=== PATIENT | male | born 1975 | race Caucasian/White ===

== ENCOUNTER 2021-02-27 03:06 | Emergency (ER) | payer BC ==
[~2021-02-27] VITALS: Ht 175.3 cm; Wt 113.6 kg
[2021-02-27 03:24] VITALS: BP 137/75
[2021-02-27] MEDS ORDERED: OXYMETAZOLINE 0.05% NASAL SPRAY 30ML BOTTLE. NS ONE (03:45)
--- NOTE | 2021-02-27 03:46 | ED.ADGEN ---
Past Medical History Additional Past Medical Histor: EAR INFECTIONS Past Surgical History: Tonsillectomy Additional Past Surgical Histo: BONE SPURS REMOVED FROM SHOULDER, KNEE SCOPE, TUBES IN EARS General Adult EDM: Chief Complaint: EARACHE/EAR PAIN HPI: HPI: Patient is a 45 year old male coming in for bilateral ear pain and pressure. States he was recently seen by his primary care and diagnosed with ear infection and just finished a course of Augmentin 4 days ago, states his symptoms never got any better. Has had appointment with his ENT doctor in 2 days in regards to his ear infections and to see about sinus surgery for his chronic congestion. Denies any fevers, tinnitus, vertigo or other complaints. Not had any drainage from his eyes been taking ibuprofen for pain Review of Systems: Review of Systems: All other systems within normal limits except for as noted in the HPI Physical Exam: PE: Constitutional: Well developed, well nourished, no acute distress, non-toxic appearance. [] HENT: Normocephalic, atraumatic, bilateral external ears normal, nose normal. Bilateral TMs retracted, no erythema or drainage [] Eyes: PERRLA, conjunctiva normal, no discharge. [] Neck: No rigidity, supple, no stridor. [] Cardiovascular: Regular rate and rhythm, brisk cap refill [] Lungs & Thorax: Non labored symmetric respirations, no tachypnea or respiratory distress [] Abdomen: Soft, nondistended. Skin: Warm, dry, no erythema, no rash. [] Back: Unremarkable Extremities: No deformities, range of motion grossly intact, no lower extremity edema [] Neurologic: Alert and oriented X 3, no focal deficits noted. [] Psychologic: Affect normal, judgement normal, mood normal. [] Current Patient Data: Vital Signs: Vital Signs Date Time Temp Pulse Resp B/P (MAP) Pulse Ox O2 Delivery O2 Flow Rate FiO2 02/27/21 03:24 98.5 69 20 137/75 (95) 98 Room Air 98.5 EKG: EKG: [] Heart Score: C/O Chest Pain: No Risk Factors: Risk Factors: DM, Current or recent (<one month) smoker, HTN, HLP, family history of CAD, obesity. Risk Scores: Score 0 - 3: 2.5% MACE over next 6 weeks - Discharge Home Score 4 - 6: 20.3% MACE over next 6 weeks - Admit for Clinical Observation Score 7 - 10: 72.7% MACE over next 6 weeks - Early Invasive Strategies Radiology/Procedures: Radiology/Procedures: [] Course & Med Decision Making: Course & Med Decision Making Pertinent Labs and Imaging studies reviewed. (See chart for details) [] Dragon Disclaimer: Dragon Disclaimer: This electronic medical record was generated, in whole or in part, using a voice recognition dictation system. Departure Departure Impression: Primary Impression: Ear pain Disposition: HOME / SELF CARE / HOMELESS Condition: STABLE Referrals: UNKNOWN PCP NAME (PCP) Patient Instructions: Sinusitis Additional Instructions: Use the Afrin nasal spray: 2 sprays in each nostril 2 times a day until you follow-up with her ENT appointment in 2 days. Use [id number] decongestants such as Mucinex and increase water intake. DONATO ARDON MD Feb 27, 2021 03:46
== END 2021-02-27 04:15 | disposition home or self-care (01) ==
LOC: ER 03:06
DX: H92.03 Otalgia, bilateral (principal)
CPT/HCPCS: 99282

== ENCOUNTER 2021-04-04 22:17 | Emergency (ER) | payer BC ==
[~2021-04-04] VITALS: Ht 175.3 cm; Wt 164.0 kg
--- NOTE | 2021-04-05 00:50 | PHYS DOC ---
Past Medical History Additional Past Medical Histor: EAR INFECTIONS Past Surgical History: Tonsillectomy Additional Past Surgical Histo: BONE SPURS REMOVED FROM SHOULDER, KNEE SCOPE, TUBES IN EARS Smoking Status: Former Smoker Alcohol Use: None General Adult EDM: Chief Complaint: FLU SYMPTOM HPI: HPI: Patient is a 46 year old male who is here with 5 or 6-day history of dry cough, shortness of breath, and fatigue. No reported fever. No reported sputum production or hemoptysis. No reported lower extremity pain or swelling. He does report some exertional dyspnea. No exertional chest pain. He reports only mild chest discomfort with coughing only, no chest pressure. No dizziness, di aphoresis, abdominal pain, nausea, vomiting, diarrhea. His 14-year-old daughter tested positive for COVID last week. They live together. She is not vaccinated against COVID-19. He has been vaccinated, but he did not receive a booster, his vaccinations occurred in early 2020. He has not been vaccinated against influenza. He denies recent surgery, hospitalization. 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 No prior history of PE. He does report that he is a former smoker, he quit smoking 2 years ago. No known history of lung disease. Review of Systems: Review of Systems: Constitutional: Denies fever or chills. [] HENT: Denies nasal congestion or sore throat. [] Respiratory: Reports dry cough and dyspnea. Denies hemoptysis Cardiovascular: Denies chest pain or edema. [] GI: Denies abdominal pain, nausea, vomiting, or diarrhea Musculoskeletal: Denies back pain or joint pain. [] Integument: Denies rash. [] Neurologic: Denies headache, focal weakness or sensory changes. [] Psychiatric: Denies depression or anxiety. [] Heart Score: C/O Chest Pain: No Risk Factors: Risk Factors: DM, Current or recent (<one month) smoker, HTN, HLP, family history of CAD, obesity. Risk Scores: Score 0 - 3: 2.5% MACE over next 6 weeks - Discharge Home Score 4 - 6: 20.3% MACE over next 6 weeks - Admit for Clinical Observation Score 7 - 10: 72.7% MACE over next 6 weeks - Early Invasive Strategies Allergies: Allergies: Allergies Coded Allergies Type Severity Reaction Last Updated Verified No Known Drug Allergies 02/27/21 No Physical Exam: PE: Constitutional: Well developed, well nourished, no acute distress, non-toxic appearance. [] HENT: Normocephalic, atraumatic Eyes: Conjunctiva normal, no discharge. [] Neck: Normal range of motion, no tenderness, supple, no stridor. Trachea is midline. No JVD. Cardiovascular:Heart rate regular rhythm, +2 radial and +2 posterior tibial pulses bilaterally, warm and well-perfused Lungs & Thorax: Bilateral breath sounds clear to auscultation, no rales, rhonchi or wheezes. No stridor. Equal chest rise. Speaks in full and clear sentences. No evidence of distress. Coughing is noted with deep inspiration Abdomen: Abdomen is soft, obese, nondistended, nontender to palpation Skin: Warm, dry, no erythema, no rash. [] Back: No tenderness, no CVA tenderness. [] Extremities: No tenderness, no cyanosis, no clubbing, ROM intact, no edema. No calf tenderness Neurologic: Alert and oriented X 3, normal motor function, normal sensory function, no focal deficits noted. [] Psychologic: Affect normal, judgement normal, mood normal. [] EKG: EKG: E[place] interpreted at 0147 Rhythm is sinus Rate is 73 bpm No STEMI Radiology/Procedures: Radiology/Procedures: IMAGING REPORT Signed PATIENT: LIZ ANDRADE LACCOUNT: [id number] : 1975 LOCATION: ER AGE: 46 SEX: M EXAM STATUS: REG ER ORD. PHYSICIAN: DAYANA GARCIA DO REASON: cough, dyspnea PROCEDURE: PORTABLE CHEST 1V Single view chest dated 04/05/2021 1:26 AM: COMPARISON: None Clinical Indication: Dyspnea. Findings: Single upright portable exam of the chest was performed. Heart size and mediastinal contours are within normal limits. Lungs are clear. No consolidation or pleural effusion. No pneumothorax. Elevation of right hemidiaphragm. IMPRESSION: No acute radiographic abnormality. Electronically signed by: Vinh Ruelas MD (04/05/2021 1:26 AM) [facility] [place]CTATED and SIGNED BY: VINH RUELAS MD DATE: 04/05/21 [id number] Course & Med Decision Making: Course & Med Decision Making Pertinent Labs and Imaging studies reviewed. (See chart for details) I discussed the findings, differential diagnosis and plan of care with the patient. He is emergency room work-up is unremarkable except for the findings of a positive COVID antigen test. He manifest no evidence of acute distress or hypoxia. D-dimer is negative. Troponin is negative. No acute ischemia on EKG. Chest x-ray is unremarkable. There is no current indication for further invasive exams, imaging or admission at this time based on current clinical presentation. I discussed home care instructions, he must go home, self isolate. He must notify all close contacts within the last 14 days, in order to have them quarantine. Strict return precautions are given. He verbalizes understanding. Bari Disclaimer: Bari Disclaimer: This electronic medical record was generated, in whole or in part, using a voice recognition dictation system. Departure Departure Impression: Primary Impression: COVID-19 Disposition: HOME / SELF CARE / HOMELESS Condition: STABLE Referrals: UNKNOWN PCP NAME (PCP) Additional Instructions: You have been tested for or diagnosed with COVID-19. It is an infection caused by a new type of coronavirus. COVID-19 will cause cold-like or mild flu symptoms in most. It can cause more severe symptoms like problems breathing in some. There is no treatment for COVID-19. The body will clear the infection over time. Self-care will help to ease discomfort. Steps to Take: Self-Care Rest as needed. Healthy habits may help you feel better. Steps include: Choose healthy foods including fruits and vegetables. Drink water throughout the day. Get plenty of sleep each night. If you smoke, try to quit. It may ease breathing. Avoid alcohol. Keep Others Healthy The virus can spread to others. Droplets are released every time you sneeze or cough. The droplets can get into the mouth, nose, or eyes of people near you and lead to infection. To lower the chances of spreading COVID-19 to others: Stay at home until your doctor has said it is safe to leave. If you tested positive this will mean staying isolated until both of the following are true: At least 7 days have passed since the start of illness. You are free of fever for at least 72 hours without the use of medicine. During this time: - Avoid public areas, events, or transportation. Do not return to work or school until your doctor has said it is safe to do so. - Call ahead if you need to go to a medical center. Let them know you may have COVID-19. It will help them guide you where to go. They may also ask you to wear a facemask when you come to the office. - If you call for emergency medical services, let them know you may have COVID- 19. While at home: - Try to avoid close contact with others. Stay about 6 feet away. - If possible, spend most of your time in a separate room from others. - Use a face mask if you will be in close contact with others such as sharing a room or vehicle. - Have someone wipe down common surfaces in the home. Use household resilient tile installer every day on areas like doorknobs, counters, or sinks. - Cough or sneeze into a tissue. Throw the tissue away right after use. If a tissue is not available, cough or sneeze into your elbow. - Wash your hands often. Wash them after sneezing or coughing. Use soap and water and wash for at least 20 seconds. Alcohol based hand septic tank cleaner can be used if soap and water is not available. - Do not prepare food for others. Avoid sharing personal items like forks, spoons, or toothbrushes. - Avoid close contact with pets while you are sick. There is no evidence of the virus passing to pets. This is a safety step until more is known about this virus. Isolation can be frustrating. Social interaction can help. Keep in touch with friends and family through phone and tech options. You can still interact with others in your home, just keep a safe distance of about 6 feet. Follow-up: Your doctors office will check in with you to see if there are any changes in your health. You may be asked to keep track of symptoms to share with them. They will also let you know when you are clear to be in public again. Problems to Look Out For: Contact your doctor if your recovery is not going as you expect. Get emergency care if you have problems such as: - Trouble breathing - Nonstop chest pain or pressure - Changes in awareness, confusion, or problems waking - Lips or face have bluish color - Worsening of symptoms If you think you have an emergency, call for emergency medical services right away. As taken from [facility] Albuterol Sulfate (VENTOLIN HFA INHALER) 18 Gm Hfa.aer.ad 2 PUFF INH Q4HRS for FOR ASTHMA, #1 EACH 1 Refill Prov: DAYANA GARCIA DO 04/05/21 Benzonatate (BENZONATATE) 200 Mg Capsule 1 CAP PO PRN TID PRN for cough, #20 CAP 0 Refills Prov: DAYANA GARCIA DO 04/05/21 DAYANA GARCIA DO Apr 05, 2021 00:50
--- NOTE | 2021-04-05 01:28 | RAD ---
Single view chest dated 04/05/2021 1:26 AM: COMPARISON: None Clinical Indication: Dyspnea. Findings: Single upright portable exam of the chest was performed. Heart size and mediastinal contours are with in normal limits. Lungs are clear. No consolidation or pleural effusion. No pneumothorax. Elevation o f right hemidiaphragm. IMPRESSION: No acute radiographic abnormality. Electronically signed by: Vinh Ruelas MD (04/05/2021 1:26 AM) CYNDIE
[2021-04-05 01:38] LABS: BASO # 0.1 x10^3/uL (0.0-0.2); BASO % 1 % (0-3); EOS # 0.2 x10^3/uL (0.0-0.7); EOS % 2 % (0-3); HEMATOCRIT 40.3 % (39.0-53.0); HEMOGLOBIN 13.6 g/dL (13.0-17.5); LYMPH # 3.2 x10^3/uL (1.0-4.8); LYMPH % 34 % (24-48); MEAN CORPUSCULAR HEMOGLOBIN 30 pg (25-35); MEAN CORPUSCULAR HGB CONC 34 g/dL (31-37); MEAN CORPUSCULAR VOLUME 90 fL (79-100); MONO % 10 % (0-9); NEUT # 5.1 x10^3/uL (1.8-7.7); NEUT % 54 % (31-73); PLATELET COUNT 221 x10^3/uL (140-400); RED BLOOD COUNT 4.49 x10^6/uL (4.30-5.70); RED CELL DISTRIBUTION WIDTH 13.7 % (11.5-14.5); WHITE BLOOD COUNT 9.5 x10^3/uL (4.0-11.0)
[2021-04-05 01:44] LABS: CREATININE 1.1 mg/dL (0.7-1.3); GFR 72.7; POTASSIUM 3.4 mmol/L (3.5-5.1)
[2021-04-05 01:50] LABS: ALBUMIN 3.1 g/dL (3.4-5.0); ALBUMIN/GLOBULIN RATIO 0.9 (1.0-1.7); TOTAL BILIRUBIN 0.4 mg/dL (0.2-1.0); TOTAL PROTEIN 6.6 g/dL (6.4-8.2)
[2021-04-05 01:56] LABS: INFLUENZA A PATIENT NEGATIVE (NEGATIVE); INFLUENZA B PATIENT NEGATIVE (NEGATIVE)
[2021-04-05 02:00] VITALS: BP 127/63
[2021-04-05] MEDS ORDERED: BENZ200C47 PO (02:10)
[2021-04-05] MEDS ORDERED: VENTOLIN HFA18 GM INH (02:10)
[2021-04-05 02:12] LABS: BILIRUBIN,URINE NEGATIVE (NEG); CLARITY,URINE CLEAR; COLOR,URINE YELLOW; NITRITE,URINE NEGATIVE (NEG); PH,URINE 5.5 (<5.0-8.0); PROTEIN,URINE NEGATIVE (NEG-TRACE)
[2021-04-05 02:33] LABS: BACTERIA,URINE 0 /HPF (0-FEW); RBC,URINE 0 /HPF (0-2)
--- NOTE | 2021-04-05 07:42 | EKG ---
[facility] [address] [place] [address] Test Date: 2021-04-05 Test Time: 01:42:38 Pat Name: LIZ ANDRADE Department: Room: Gender: M Knowledge Engineer: : 1975 Requested By: DAYANA GARCIA Order Number: [id number] Reading MD: Jimmy Martínez MD Measurements Intervals [place] Rate: 73 P: 43 MA: 148 QRS: 5 QRSD: 90 T: 20 QT: 360 QTc: 400 Interpretive Statements SINUS RHYTHM Electronically Signed On 04-05-2021 20:39:46 FRINGING MACHINE OPERATOR by Jimmy Martínez MD
== END 2021-04-05 02:20 | disposition home or self-care (01) ==
LOC: ER 22:17
DX: U07.1 COVID-19 (principal); Z87.891 Personal history of nicotine dependence
CPT/HCPCS: 36415; 71045; 80053; 81001; 83880; 84484; 85025; 85379; 87428; 93005; 99285-25

== ENCOUNTER → 2021-07-20 | Emergency (ER) | payer BC ==
[~2021-07-20] VITALS: Ht 175.3 cm; Wt 122.7 kg
[~2021-07-20] MED LIST: BENZ200C47 PO; CEPH500T PO; IV NORMAL SALINE 1000ML BAG 1,000 ML IV ONE; KETOROLAC 30 MG/ML VIAL. IVP ONE; MORPHINE SULFATE 4 MG/ML INJ. IVP ONE; POTASSIUM CHLORIDE 20 MEQ TABLET.ER. PO ONE; VENTOLIN HFA18 GM INH; cefTRIAXone IV Push 1 GM VIAL. IVP ONE
[2021-07-20 21:42] LABS: BASO # 0.1 x10^3/uL (0.0-0.2); BASO % 1 % (0-3); EOS # 0.2 x10^3/uL (0.0-0.7); EOS % 2 % (0-3); HEMATOCRIT 37.3 % (39.0-53.0); HEMOGLOBIN 12.8 g/dL (13.0-17.5); LYMPH # 3.3 x10^3/uL (1.0-4.8); LYMPH % 25 % (24-48); MEAN CORPUSCULAR HEMOGLOBIN 31 pg (25-35); MEAN CORPUSCULAR HGB CONC 34 g/dL (31-37); MEAN CORPUSCULAR VOLUME 89 fL (79-100); MONO # 0.8 x10^3/uL (0.0-1.1); MONO % 6 % (0-9); NEUT # 8.8 x10^3/uL (1.8-7.7); NEUT % 67 % (31-73); PLATELET COUNT 232 x10^3/uL (140-400); RED BLOOD COUNT 4.21 x10^6/uL (4.30-5.70); RED CELL DISTRIBUTION WIDTH 13.5 % (11.5-14.5); WHITE BLOOD COUNT 13.2 x10^3/uL (4.0-11.0)
[2021-07-20 21:50] LABS: BACTERIA,URINE FEW /HPF (0-FEW); WBC,URINE TNTC /HPF (0-4)
[2021-07-20 22:00] LABS: CALCIUM 7.7 mg/dL (8.5-10.1); GFR 81.2; POTASSIUM 3.1 mmol/L (3.5-5.1)
[2021-07-20 22:06] LABS: ALBUMIN 3.2 g/dL (3.4-5.0); TOTAL BILIRUBIN 0.6 mg/dL (0.2-1.0); TOTAL PROTEIN 6.5 g/dL (6.4-8.2)
--- NOTE | 2021-07-20 22:15 | RAD ---
Exam: CT of abdomen and pelvis without contrast INDICATION: Renal colic study, right flank pain TECHNIQUE: Sequential axial images through the abdomen and pelvis obtained without IV contrast. Sagit bassem and coronal reformatted images were reconstructed from the axial data and reviewed. Exposure: One or more of the following in the visualized dose reduction techniques were utilized for this examination: 1. Automated exposure control 2. Adjustment of the MA and/or KV according to patient size 3. Use of iterative of reconstructive technique Comparisons: None FINDINGS: Heart size is normal. No pericardial effusion. Visualized lung bases are clear. No pleural effusion. Evaluation of solid organs limited to noncontrast technique. Liver has diffuse hepatic steatosis. Spleen, pancreas, gallbladder and adrenals are unremarkable. No perinephric inflammation or hydronephrosis. No renal or ureteral calculi are identified. Bladder is partially distended and not well evaluated. Prostate is not enlarged. Moderate amount of stool noted in the colon. Appendix is normal. Small bowel is unremarkable. No free intra-abdominal air fluid. No obstruction. Abdominal aorta has normal course and caliber. No enlarged intra-abdominal lymph nodes are identified. No suspicious osseous lesions or acute fractures. IMPRESSION: 1. No renal or ureteral calculi. No evidence for obstructive uropathy. 2. Diffuse hepatic steatosis. Electronically signed by: Jasper Worrell MD (07/20/2021 10:12 PM) [facility]
--- NOTE | 2021-07-20 22:18 | PHYS DOC ---
Past Medical History Additional Past Medical Histor: EAR INFECTIONS Past Surgical History: No Surgical History Additional Past Surgical Histo: BONE SPURS REMOVED FROM SHOULDER, KNEE SCOPE, TUBES IN EARS Smoking Status: Never Smoker Alcohol Use: None General Adult EDM: Chief Complaint: ABDOMINAL PAIN HPI: HPI: Patient is a 46-year-old patient presents to the emergency department complaining of right-sided mid to low abdomen pain with painful burning urination that started yesterday evening after she got off work. Patient states he has not seen any blood in his urine, does complain of increased urinary frequency, painful difficulty urination with burning. Patient denies nausea vomiting diarrhea or constipation. Patient denies chest pains, denies recent fever or chills. Patient denies chest or nasal congestion. Patient denies rashes or lesions to his penis or genitals. Patient denies penile discharge, patient denies STI concerns. Denies other physical complaints or physical patricia rns. Review of Systems: Review of Systems: 14 body systems of review of systems have been reviewed. See HPI for pertinent positives and negative responses, otherwise all other systems are negative, nonpertinent or noncontributory. Constitutional: Negative except as outlined in HPI above. Skin: Negative except as outlined in HPI above. Eyes: Negative except as outlined in HPI above. HENT: Negative except as outlined in HPI above. Respiratory: Negative except as outlined in HPI above. Cardiovascular: Negative except as outlined in HPI above. GI: Negative except as outlined in HPI above. : Negative except as outlined in HPI above. Musculoskeletal: Negative except as outlined in HPI above. Integument: Negative except as outlined in HPI above. Neurologic: Negative except as outlined in HPI above. Endocrine: Negative except as outlined in HPI above. Lymphatic: Negative except as outlined in HPI above. Psychiatric: Negative except as outlined in HPI above. Heart Score: C/O Chest Pain: No Risk Factors: Risk Factors: DM, Current or recent (<one month) smoker, HTN, HLP, family his tory of CAD, obesity. Risk Scores: Score 0 - 3: 2.5% MACE over next 6 weeks - Discharge Home Score 4 - 6: 20.3% MACE over next 6 weeks - Admit for Clinical Observation Score 7 - 10: 72.7% MACE over next 6 weeks - Early Invasive Strategies Current Medications: Current Medications Medications (Trade) Dose Ordered Sig/Jesus Start Time Stop Time Status Last Admin Dose Admin Ketorolac Tromethamine (Toradol 30mg Vial) 30 mg 1X ONCE 07/20/21 22:00 07/20/21 22:01 DC 07/20/21 21:34 30 MG Potassium Chloride (Klor-Con) 40 meq 1X ONCE 07/20/21 22:15 07/20/21 22:16 UNV Sodium Chloride 1,000 ml @ 1,000 mls/hr 1X ONCE 07/20/21 22:00 07/20/21 22:59 07/20/21 21:34 1,000 MLS/HR Allergies: Allergies: Allergies Coded Allergies Type Severity Reaction Last Updated Verified No Known Drug Allergies 02/27/21 No Physical Exam: PE: Constitutional: Well developed, well nourished, no acute distress, non-toxic appearance. 46-year-old male in no apparent distress. HENT: Normocephalic, atraumatic. Eyes: Conjunctiva normal, no discharge. Neck: Normal range of motion, no stridor. Cardiovascular: No cyanosis appreciated, distal cap refill less than 2 seconds. Lungs & Thorax: Patient is in no respiratory distress, no audible adventitious lung sounds appreciated. Abdomen: Abdomen is tender just inferior to umbilicus, there is no definitive McBurney's point tenderness, negative psoas sign, negative rebound tenderness. No abnormal discoloration of the abdomen. Abdomen is soft. Skin: Warm, dry, no erythema, no rash. Back: No deformities present, there is no left-sided CVA TTP, there is positive right-sided CVA TTP. Extremities: No tenderness, no cyanosis, no clubbing, ROM intact, no edema. Neurologic: Alert and oriented X 3, normal motor function, normal sensory function, no focal deficits noted. Psychologic: Affect normal, judgement normal, mood normal. Current Patient Data: Labs: Laboratory Tests Test 07/20/21 21:35 White Blood Count 13.2 x10^3/uL (4.0-11.0) H Red Blood Count 4.21 x10^6/uL (4.30-5.70) L Hemoglobin 12.8 g/dL (13.0-17.5) L Hematocrit 37.3 % (39.0-53.0) L Mean Corpuscular Volume 89 fL (79-100) Mean Corpuscular Hemoglobin 31 pg (25-35) Mean Corpuscular Hemoglobin Concent 34 g/dL (31-37) Red Cell Distribution Width 13.5 % (11.5-14.5) Platelet Count 232 x10^3/uL (140-400) Neutrophils (%) (Auto) 67 % (31-73) Lymphocytes (%) (Auto) 25 % (24-48) Monocytes (%) (Auto) 6 % (0-9) Eosinophils (%) (Auto) 2 % (0-3) Basophils (%) (Auto) 1 % (0-3) Neutrophils # (Auto) 8.8 x10^3/uL (1.8-7.7) H Lymphocytes # (Auto) 3.3 x10^3/uL (1.0-4.8) Monocytes # (Auto) 0.8 x10^3/uL (0.0-1.1) Eosinophils # (Auto) 0.2 x10^3/uL (0.0-0.7) Basophils # (Auto) 0.1 x10^3/uL (0.0-0.2) Urine Collection Type Unknown Urine Color (Auto) Light orange Urine Turbidity Hazy Urine pH (Auto) 6.0 (<5.0-8.0) Urine Specific [place] 1.007 (1.000-1.030) Urine Protein (Auto) 70 mg/dL (Negative) Urine Glucose (Auto)(UA) Negative mg/dL (Negative) Urine Ketones (Auto) Negative mg/dL (Negative) Urine Blood (Auto) Large (Negative) Urine Nitrite Negative (Negative) Urine Bilirubin (Auto) Negative (Negative) Urine Urobilinogen (Auto) Normal mg/dL (Normal) Urine Leukocyte Esterase (Auto) Large (Negative) Urine RBC 11-20 /HPF (0-2) Urine WBC Tntc /HPF (0-4) Urine Squamous Epithelial Cells Few /LPF Urine Bacteria Few /HPF (0-FEW) Urine Mucus Mod /LPF Sodium Level 142 mmol/L (136-145) Potassium Level 3.1 mmol/L (3.5-5.1) L Chloride Level 108 mmol/L (98-107) H Carbon Dioxide Level 23 mmol/L (21-32) Anion Gap 11 (6-14) Blood Urea Nitrogen 7 mg/dL (8-26) L Creatinine 1.0 mg/dL (0.7-1.3) Estimated GFR (Cockcroft-Gault) 81.2 BUN/Creatinine Ratio 7 (6-20) Glucose Level 109 mg/dL (70-99) H Calcium Level 7.7 mg/dL (8.5-10.1) L Total Bilirubin 0.6 mg/dL (0.2-1.0) Aspartate Amino Transferase (AST) 24 U/L (15-37) Alanine Aminotransferase (ALT) 55 U/L (16-63) Alkaline Phosphatase 69 U/L (46-116) Total Protein 6.5 g/dL (6.4-8.2) Albumin 3.2 g/dL (3.4-5.0) L Albumin/Globulin Ratio 1.0 (1.0-1.7) Lipase 102 U/L (73-393) Laboratory Tests 07/20/21 21:35 Laboratory Tests 07/20/21 21:35 Vital Signs: Vital Signs Date Time Temp Pulse Resp B/P (MAP) Pulse Ox O2 Delivery O2 Flow Rate FiO2 07/20/21 21:11 98.0 80 18 140/66 (90) 97 Room Air 98.0 EKG: EKG: [] Radiology/Procedures: Radiology/Procedures: STATUS: PRE ER ORD. PHYSICIAN: NAYELI ADHIKARI APRN REASON: Renal colic study right side flank pain PROCEDURE: CT ABDOMEN PELVIS WO CONTRAST Exam: CT of abdomen and pelvis without contrast INDICATION: Renal colic study, right flank pain TECHNIQUE: Sequential axial images through the abdomen and pelvis obtained without IV contrast. Sagittal and coronal reformatted images were reconstructed from the axial data and reviewed. Exposure: One or more of the following in the visualized dose reduction techniques were utilized for this examination: 1. Automated exposure control 2. Adjustment of the MA and/or KV according to patient size 3. Use of iterative of reconstructive technique Comparisons: None FINDINGS: Heart size is normal. No pericardial effusion. Visualized lung bases are clear. No pleural effusion. Evaluation of solid organs limited to noncontrast technique. Liver has diffuse hepatic steatosis. Spleen, pancreas, gallbladder and adrenals are unremarkable. No perinephric inflammation or hydronephrosis. No renal or ureteral calculi are identified. Bladder is partially distended and not well evaluated. Prostate is not enlarged. Moderate amount of stool noted in the colon. Appendix is normal. Small bowel is unremarkable. No free intra-abdominal air fluid. No obstruction. Abdominal aorta has normal course and caliber. No enlarged intra-abdominal lymph nodes are identified. No suspicious osseous lesions or acute fractures. IMPRESSION: 1. No renal or ureteral calculi. No evidence for obstructive uropathy. 2. Diffuse hepatic steatosis. Electronically signed by: Jasper Worrell MD (07/20/2021 10:12 PM) [facility] Course & Med Decision Making: Course & Med Decision Making Pertinent Labs and Imaging studies reviewed. (See chart for details) 46-year-old male, vital signs reviewed, presents emergency department concerning painful burning urination with abdominal discomfort. Physical examination is concerning for UTI versus pyelonephritis versus renal colic. Will order urinalysis assay with post void residual scan, CBC, CMP, lipase, saline lock, will give 1 L normal saline, IV pain medicine. There is hematuria with marked leukocyte Estrace, will order CT abdomen pelvis for renal colic study. The patient's potassium was 3.1, will give supplement in ED. Will give [address] abdomen pelvis is negative for acute process. Discussed findings with patient, will start on Rocephin regimen, strict follow-up with primary care this week, patient states he does have an appointment to see his primary care physician this coming Saturday, discussed with patient to keep this appointment, reviewed return to ER precautions and concerns, patient gave verbal understanding of and is amenable to ED discharge planning. Discussed with the patient all findings and diagnostic testing as well as the need to follow-up with their primary care provider for further evaluation and treatment or return to the ED if any new or worsening symptoms. Strict return precautions were also discussed at length, the patient voiced understanding and agreement with the discharge planning. The patient was nontoxic in appearance, in no apparent distress, and hemodynamically stable at the time of disposition. Bari Disclaimer: Bari Disclaimer: This electronic medical record was generated, in whole or in part, using a voice recognition dictation system. Departure Departure Impression: Primary Impression: Urinary tract infection Qualified Codes: N39.0 - Urinary tract infection, site not specified; R31.9 - Hematuria, unspecified Disposition: HOME / SELF CARE / HOMELESS Condition: GOOD Referrals: UNKNOWN PCP NAME (PCP) Patient Instructions: Urinary Tract Infection Additional Instructions: You were seen today in the emergency department for abdominal pain. Your urinalysis showed that you have a urinary tract infection with hematuria. The CT scan of your abdomen and pelvis did not show any concerning findings, you do not have kidney stones, your gallbladder and your pancreas were within normal limits, you do show signs of a fatty liver. Please tell your doctor your serum white blood cell count was 13.2, RBC 4.21, Hgb 12.8, HCT 37.3. Your differenti al is unremarkable. Your sodium 142, potassium 3.1, you were given a potassium supplement in the emergency department today, your chloride 108, CO2 23, creatinine 1.0, BUN 7. Your glucose 109. Calcium 7.7. Albumin 3.2. Your lipase 102. Your urinalysis showed large amount of blood, large amount of leukocyte Estrace, there were no urine nitrites, urine red blood cells 11-20, urine white blood cells too many to count, few urine bacteria. Please take these discharge instructions with you to your appointment when you see Dr. Quiñones this coming Saturday. Please let him know you were given 1 g of Rocephin intravenously, you are sent home with a prescription for Keflex to take 500 mg capsules 4 times a day for the next 10 days. Thank you for visiting our Emergency Department. It was a pleasure taking care of you today in the emergency department and we appreciate you trusting us with your care. If any additional problems come up don't hesitate to return to visit us. Please follow up with your primary care provider so they can plan additional care if needed and know about the problem that you had. If symptoms worsen come back to the Emergency Department. Any concerning symptoms that start such as chest pain, shortness of air, weakness or numbness on one side of the body, running high fevers or any other concerning symptoms return to the ER. Scripts Cephalexin (CEPHALEXIN) 500 Mg Tablet 1 TAB PO QID for UTI, #40 TAB 0 Refills Prov: NAYELI ADHIKARI APRN 07/21/21 NAYELI ADHIKARI APRN July 20, 2021 22:18
[2021-07-20 23:10] VITALS: BP 123/58
== END ==
LOC: ER 20:57
DX: N39.0 Urinary tract infection, site not specified (principal); R31.9 Hematuria, unspecified
CPT/HCPCS: 36415; 74176; 80053; 81001; 83690; 85025; 87077; 87086; 87186; 96361; 96374; 96375; 99284; J0696; J1885; J7030